=== PATIENT | male | born 1980 | race Caucasian/White ===

== ENCOUNTER 2021-10-21 22:40 | Emergency (ER) | payer MEDICAID, SELFPAY ==
[2021-10-21 22:41] VITALS: BP 152/89; PULSE 92; RESP 18; TEMP 37.2; O2SAT 97; BMI 40.2
--- NOTE | 2021-10-21 23:29 | RAD_ITS ---
STUDY: X-RAY - RIGHT TIBIA AND FIBULA REASON FOR EXAM: Male, 40 years old. injury TECHNIQUE: 2 view(s) of the tibia and fibula were obtained. COMPARISON: None. FINDINGS: Normal visualized tibia. Normal visualized fibula. The soft tissue structures are unremarkable. RAD/Tibia & Fibula 2 Views IMPRESSION: Normal x-ray examination of the tibia and fibula. Electronically Signed: Lesley Garrett MD at 0:28 EDT ,
--- NOTE | 2021-10-21 23:29 | RAD_ITS ---
STUDY: X-RAY - RIGHT ANKLE REASON FOR EXAM: Male, 40 years old. injury TECHNIQUE: 3 view(s) of the ankle. COMPARISON: None. FINDINGS: Arthrodesis of the tibiotalar joint and subtalar joints. There is solid bony bridging. There is no evidence of fracture. The soft tissue structures are unremarkable. RAD/Ankle min 3 Views IMPRESSION: There is no acute bone injury of the ankle. Electronically Signed: Lesley Garrett MD at 0:25 EDT ,
[2021-10-21] MEDS: Ondansetron ODT 4 MG Tablet PO (23:53)
[2021-10-21] MEDS: morphine 10 MG/ML Syringe 8 MG IM (23:54)
[2021-10-22 00:53] VITALS: PULSE 77; RESP 15; O2SAT 98
--- NOTE | 2021-10-22 00:53 | EX.ED.DYSGE1 ---
HPI History of Present Illness Chief Complaint: Fall Narrative Narrative: Patient is a 40-year-old male who recently had surgery at the [facility] for a ankle fusion. He states he is using a wheeled scooter to get around but does use crutches to move in the house. He states just prior to arrival he was trying to take 1 step up into the living room when he lost his balance and fell. He states he injured the right ankle which is what he had surgery on. He reports feeling a pop. He is concerned that he may have disrupted his surgery and therefore comes in for evaluation. He states that there was no loss of consciousness and he denies any blood thinner use [facility] Medical History GERD (gastroesophageal reflux disease) HTN (hypertension) Home Medications aspirin 325 mg PO DAILY 10/21/21 [History Last Taken Unknown] cholecalciferol (vitamin D3) [Vitamin D3] 10 mcg PO BID 10/21/21 [History Last Taken Unknown] cyclobenzaprine [Flexeril] 5 mg PO TID PRN 10/21/21 [History Last Taken Unknown] diphenhydramine HCl [Benadryl] 50 mg PO BID 10/21/21 [History Last Taken Unknown] docusate sodium [Colace] 100 mg PO BID 10/21/21 [History Last Taken Unknown] losartan 25 mg PO DAILY 10/21/21 [History Last Taken Unknown] omeprazole 20 mg PO DAILY 10/21/21 [History Last Taken Unknown] oxycodone-acetaminophen [Percocet] 1 tab PO Q6H PRN 10/21/21 [History Last Taken Unknown] polyethylene glycol 3350 [Miralax] 17 g PO DAILY 10/21/21 [History Last Taken Unknown] sennosides [Senna-Ex] 15 mg PO BID 10/21/21 [History Last Taken Unknown] sulfamethoxazole-trimethoprim [Bactrim DS] 1 tab PO BID 10/21/21 [History Last Taken Unknown] Allergy/AdvReac Type Severity Reaction Status Date / Time No Known Allergies Allergy Verified 10/21/21 22:43 Social History Smoking Status: Never smoker ROS ROS ED Constitutional Constitutional ED: Denies chills or fever(s) Eyes Eyes: Denies change in vision Cardiovascular Cardiovascular: Denies chest pain Respiratory/Chest Respiratory/Chest: Denies cough or dyspnea Gastrointestinal Gastrointestinal: Denies abdominal pain, diarrhea, nausea or vomiting Genitourinary Genitourinary ED: Denies dysuria Musculoskeletal Musculoskeletal: Reports other Details: Positive right foot/ankle pain ; Denies myalgias Integumentary Denies rash Neurologic Neurologic: Denies headache(s) or paresthesias Hematologic/Lymphatic Hematologic/Lymphatic: Denies easy bleeding or easy bruising EXAM Physical Exam Const Vital Signs: 10/21/21 22:41 Temperature 99 F Temperature Source Oral Pulse Rate 92 Respiratory Rate 18 Blood Pressure 152/89 H Blood Pressure Mean 110 Pulse Ox 97 Oxygen Delivery Method Room Air Positive well nourished and well developed General Appearance ED: well developed Eyes PERRL and EOMs intact bilaterally Neck supple Resp normal respiratory effort and clear to auscultation bilaterally Cardio regular rate and regular rhythm Extremity Extremity Narrative: Patient has postsurgical changes to his right lower leg. The wounds are clean dry and intact without any signs of infection or dehiscence. There is soft tissue swelling which is consistent with his recent surgery as well. There is no obvious bony deformity. Neuro oriented x3 and CN's II-XII intact bilaterally Sensorium / Orientation: alert Psych mental status grossly normal Skin Skin Narrative: Patient has soft tissue changes to the right lower leg consistent with recent surgery but no secondary changes to suggest infection MDM MDM MDM Narrative Medical decision making narrative: Patient presented to the ER with report of a mechanical fall. He does not take blood thinners and did not have loss of consciousness and therefore I felt no need for blood work or head CT. With his recent surgery and report of feeling a pop after the fall there is concern he may have damaged his hardware so x-rays were ordered. X-rays revealed no acute fracture dislocation or hardware malalignment. Therefore patient is safe for discharge and can follow-up with his surgeon for repeat evaluation. Radiography Diagnostic Testing: Clinical Impression(s) from Imaging Studies Ankle X-Ray 10/21/21 23:29 IMPRESSION: There is no acute bone injury of the ankle. Electronically Signed: Lesley Garrett MD at 0:25 EDT Reading Location ID and State: [facility] / [place] Tel , Service support , Tibia/Fibula X-Ray 10/21/21 23:29 IMPRESSION: Normal x-ray examination of the tibia and fibula. Electronically Signed: Lesley Garrett MD at 0:28 EDT , X-rays of the right ankle and right tibia/fibula as interpreted by the emergency medicine physician reveal the hardware to be intact and in place without acute fracture or dislocation Discharge Plan Triage Chief Complaint: Fall ED Provider: Wilmer Jack Dx/Rx/DC Orders Clinical Impression: Accidental fall, Post-operative pain Instructions: Pain Management After Surgery, ED Post Op Wound Check, General Prescriptions: No Action diphenhydramine HCl [Benadryl] 50 mg Capsule 50 mg PO BID RF: 0 polyethylene glycol 3350 [Miralax] 17 gram Powder In Packet 17 g PO DAILY RF: 0 aspirin 325 mg Tablet 325 mg PO DAILY RF: 0 Colace 50 mg Capsule 100 mg PO BID RF: 0 sulfamethoxazole-trimethoprim [Bactrim DS] 800-160 mg Tablet 1 tab PO BID RF: 0 oxycodone-acetaminophen [Percocet] 5-325 mg Tablet 1 tab PO Q6H PRN (Reason: Pain) RF: 0 Senna-Ex 15 mg Tablet 15 mg PO BID RF: 0 losartan 25 mg Tablet 25 mg PO DAILY RF: 0 omeprazole 20 mg Capsule,Delayed Release(Dr/Ec) 20 mg PO DAILY RF: 0 cholecalciferol (vitamin D3) [Vitamin D3] 10 mcg (400 unit) Capsule 10 mcg PO BID RF: 0 cyclobenzaprine [Flexeril] 5 mg Tablet 5 mg PO TID PRN (Reason: Pain) RF: 0 Primary Care Provider: Care Physician,No Primary Referrals: Care Physician,No Primary [Primary Care Provider] - Activity Restrictions/Additional Instructions: Please follow-up with your surgeon for repeat evaluation and return to the ER should you have any further concerns Disposition Disposition: Home, Self Care
== END 2021-10-22 01:41 | disposition home or self-care (01) ==
PROVIDERS: Emergency Provider Emergency Medicine; Visit Provider Emergency Medicine
DX: Z04.3 Encounter for examination and observation following other accident (principal); M25.571 Pain in right ankle and joints of right foot; G89.18 Other acute postprocedural pain; I10 Essential (primary) hypertension; K21.9 Gastro-esophageal reflux disease without esophagitis; Z79.82 Long term (current) use of aspirin; Z79.899 Other long term (current) drug therapy
CPT/HCPCS: 73590; 73610; 96372; 99285

== ENCOUNTER 2021-10-26 09:24 | Emergency (ER) | payer MEDICAID, SELFPAY ==
[2021-10-26 09:26] VITALS: BP 151/92; PULSE 107; RESP 14; TEMP 37.5; O2SAT 98; BMI 39.2
--- NOTE | 2021-10-26 09:33 | NURSING ---
NO OLD EKGS
--- NOTE | 2021-10-26 09:34 | EKG12_ITS ---
Test Reason : CP Blood Pressure : / mmHG Vent. Rate : 104 BPM Atrial Rate : 104 BPM P-R Int : 142 ms QRS Dur : 094 ms QT Int : 334 ms P-R-T Axes : 045 021 029 degrees QTc Int : 439 ms Sinus tachycardia Otherwise normal ECG Confirmed by RENU STUBBS, AGUSTIN ([id number]), video news editor NANCY BRAVO ([id number]) on 10/27/2021 1:32:11 PM Referred By: ERNST Confirmed By:AGUSTIN SEARS MD
--- NOTE | 2021-10-26 09:36 | ED.VIS.CHEST ---
HPI History of Present Illness Chief Complaint: Chest Pain Informant: patient Narrative Narrative: Patient presents with episodes of pain and racing heartbeat for the last 2 or 3 days. He states he thinks this might be anxiety or panic attacks. He has home postoperatively from a right ankle fusion 10 days ago. He states he is scared he might fall because he fell twice. He is scared that he might not be able to care for himself or something could happen that would prevent him from getting help. He states he gets these feelings then he gets pain and a racing heartbeat. He also feels that he needs oxygen and he would feel better at home if he had oxygen. He is also concerned that there is an infection in the wound. He has seen his surgeon up at [facility] since the surgery and since he has 2 falls at home. Evidently the wound and surgery are going well and healing well. He is on antibiotics because he had a reaction to petroleum gauze. But he has had no fevers or chills. He has slight drainage from the wound but it is lessening. His surgeon thinks it is healing very well. Nothing specifically makes the symptoms better. The concerns as above tend to make them worse. [facility] Medical History GERD (gastroesophageal reflux disease) HTN (hypertension) Home Medications aspirin 325 mg PO DAILY 10/21/21 [History Last Taken Unknown] cholecalciferol (vitamin D3) [Vitamin D3] 10 mcg PO BID 10/21/21 [History Last Taken Unknown] cyclobenzaprine [Flexeril] 5 mg PO TID PRN 10/21/21 [History Last Taken Unknown] diphenhydramine HCl [Benadryl] 50 mg PO BID 10/21/21 [History Last Taken Unknown] docusate sodium [Colace] 100 mg PO BID 10/21/21 [History Last Taken Unknown] losartan 25 mg PO DAILY 10/21/21 [History Last Taken Unknown] omeprazole 20 mg PO DAILY 10/21/21 [History Last Taken Unknown] oxycodone-acetaminophen [Percocet] 1 tab PO Q6H PRN 10/21/21 [History Last Taken Unknown] polyethylene glycol 3350 [Miralax] 17 g PO DAILY 10/21/21 [History Last Taken Unknown] sennosides [Senna-Ex] 15 mg PO BID 10/21/21 [History Last Taken Unknown] sulfamethoxazole-trimethoprim [Bactrim DS] 1 tab PO BID 10/21/21 [History Last Taken Unknown] hydroxyzine pamoate 50 mg PO TID PRN PRN #30 cap 10/26/21 [Rx Last Taken Unknown] Allergy/AdvReac Type Severity Reaction Status Date / Time petrolatum,white Allergy Hives Verified 10/26/21 09:25 [From Vaseline] Social History Smoking Status: Never smoker ROS ROS ED Constitutional Constitutional ED: Denies chills or fever(s) Eyes Eyes: Denies blurry vision ENT ENT ED: Denies rhinorrhea or sore throat Cardiovascular Cardiovascular: Reports as per HPI and chest pain Respiratory/Chest Respiratory/Chest: Reports dyspnea Gastrointestinal Gastrointestinal: Denies abdominal pain, nausea or vomiting Musculoskeletal Musculoskeletal: Reports other Details: Right ankle pain but this is controlled. ; Denies arthralgias or myalgias Integumentary Reports other Details: Had a local reaction to the petrolatum gauze at his right ankle but that is improving. ; Denies rash Neurologic Neurologic: Denies headache(s) Psychiatric Psychiatric: Reports anxiety Endocrine Endocrinology: Denies polydipsia or polyuria Hematologic/Lymphatic Hematologic/Lymphatic: Denies easy bleeding or easy bruising Allergic/Immunologic Allergic/Immunologic ED: Denies urticaria EXAM Physical Exam Const Vital Signs: 10/26/21 09:26 10/26/21 09:32 10/26/21 09:39 Temperature 99.5 F H Temperature Source Temporal Pulse Rate 107 H Respiratory Rate 14 Respiratory Effort Short of Breath Blood Pressure 151/92 H Blood Pressure Mean 111 Pulse Ox 98 97 Oxygen Delivery Method Room Air Room Air 10/26/21 11:04 Temperature Temperature Source Pulse Rate 94 Respiratory Rate 20 H Respiratory Effort Blood Pressure 140/77 H Blood Pressure Mean 98 Pulse Ox 94 Oxygen Delivery Method Room Air Positive well nourished and well developed General Appearance ED: well developed and NAD HEENT Reports moist mucous membranes Eyes Negative for PERRL or EOMs intact bilaterally Neck No supple Chest Wall inspection of chest normal Chest Narrative: He does have some chest wall tenderness on both sides but mostly on the lower right anterior. No rash. Resp normal respiratory effort and clear to auscultation bilaterally Resp Narrative: No pain when he takes a deep breath for me. Effort and Inspection: Negative for respiratory distress Auscultation: wheezes; Negative for rales or rhonchi Cardio regular rhythm Rate: other Other Details: Rate is a little tachycardic about 105. Rare PVC. GI normal to inspection, nondistended, normoactive bowel sounds, soft to palpation, non-tender and non-distended Back/Spine no CVA tenderness Extremity Extremity Narrative: Dressings applied by his surgeon are on right lower extremity. Toes have normal color and sensation and motion. Skin and leg above the dressings are normal. Neuro Sensorium / Orientation: awake and alert Psych mental status grossly normal Mood & Affect: anxious Skin no rashes or lesions noted MDM MDM MDM Narrative Medical decision making narrative: Blood work shows normal white count. Hemoglobin is just minimally low. Platelets are normal. Electrolytes show no marked abnormalities. Troponin is negative despite symptoms off and on for couple days. CT shows no PE but there is some mild atelectasis its not uncommon after surgery. I think the patient can go home. He thought his symptoms were due to anxiety. I think this likely is a case. When not seeing signs of infectious cardiac pulmonary embolus or other complications. I will get patient home on some Vistaril as an option. We discussed reasons that would still prompt repeat evaluation return. Lab Data Attestation: I reviewed the patient's lab results. Labs: Laboratory Results - last 24 hr 10/26/21 10/26/21 09:40 09:40 WBC 6.8 RBC 4.40 L Hgb 12.7 L Hct 37.2 L MCV 84.5 MCH 28.9 MCHC 34.1 RDW Std Deviation 39.2 RDW Coeff of Izzy 12.8 Plt Count 196 MPV 13.0 H Immature Gran % (Auto) 0.300 Neut % (Auto) 67.8 Lymph % (Auto) 21.3 Villalba % (Auto) 6.8 Eos % (Auto) 3.1 Baso % (Auto) 0.7 Absolute Neuts (auto) 4.6 Absolute Lymphs (auto) 1.44 Nucleated RBC % 0 Sodium 134 L Potassium 3.8 Chloride 103 Carbon Dioxide 21.0 Anion Gap 10 BUN 14 Creatinine 1.29 Estim Creat Clear Calc 90.98 Est GFR (MDRD) Af Amer 79 Est GFR (MDRD) Non-Af 65 BUN/Creatinine Ratio 10.9 Glucose 131 H Calcium 9.1 Troponin I High Sens < 3 L Radiography Diagnostic Testing: Clinical Impression(s) from Imaging Studies Chest CTA 10/26/21 10:00 IMPRESSION: Findings suggestive of mild degree of bibasilar atelectasis. Electronically Signed: Omkar Tadeo MD at 10:41 EDT , Treatment and Re-Evaluation Narrative: EKG done for chest pain palpitations and read by me shows a sinus rhythm with slightly tachycardic rate of 104. No ventricular ectopy on this EKG. No acute ST elevation or depression and he was having symptoms with this EKG. IL interval, QRS duration and QTc normal. Discharge Plan Triage Chief Complaint: Chest Pain ED Provider: Gilmar Jovel Dx/Rx/DC Orders Clinical Impression: Heart palpitations, Anxiety Instructions: ED Anxiety Reaction, ED Palpitations Prescriptions: New hydroxyzine pamoate [hydroxyzine pamoate] 25 MG capsule 50 mg PO TID PRN PRN (Reason: Anxiety) Qty: 30 RF: 0 No Action diphenhydramine HCl [Benadryl] 50 mg Capsule 50 mg PO BID RF: 0 polyethylene glycol 3350 [Miralax] 17 gram Powder In Packet 17 g PO DAILY RF: 0 aspirin 325 mg Tablet 325 mg PO DAILY RF: 0 Colace 50 mg Capsule 100 mg PO BID RF: 0 sulfamethoxazole-trimethoprim [Bactrim DS] 800-160 mg Tablet 1 tab PO BID RF: 0 oxycodone-acetaminophen [Percocet] 5-325 mg Tablet 1 tab PO Q6H PRN (Reason: Pain) RF: 0 Senna-Ex 15 mg Tablet 15 mg PO BID RF: 0 losartan 25 mg Tablet 25 mg PO DAILY RF: 0 omeprazole 20 mg Capsule,Delayed Release(Dr/Ec) 20 mg PO DAILY RF: 0 cholecalciferol (vitamin D3) [Vitamin D3] 10 mcg (400 unit) Capsule 10 mcg PO BID RF: 0 cyclobenzaprine [Flexeril] 5 mg Tablet 5 mg PO TID PRN (Reason: Pain) RF: 0 Referrals: XANDER BARTLETT [Other] - 3-5 Days Disposition Disposition: Home, Self Care
[2021-10-26 09:39] VITALS: O2SAT 97
--- NOTE | 2021-10-26 10:00 | CT_ITS ---
STUDY: CTA CHEST REASON FOR EXAM: Male, 40 years old. Chest pain post op RADIATION DOSAGE (If Supplied By Facility): CTDIvol = ( 16.22 ) mGy, DLP = ( 598.43 ) mGycm TECHNIQUE: The examination was performed with the intravenous administration of IV 100mL Isovue-370. Post-processing of the angiographic images was performed, with multiplanar reformation and 3D reconstruction. Individualized dose optimization techniques were used for this CT. COMPARISON: None. FINDINGS: Normal enhancement of the main pulmonary artery and right and left pulmonary arteries. Normal enhancement of the bilateral peripheral pulmonary arteries. There is no demonstrated pulmonary embolism. Normal thoracic aorta and visualized great vessels. There is no demonstrated aortic dissection. Normal heart and pericardium. Normal mediastinum. Normal hilar regions. Normal visualized trachea and bronchi. The lungs are well expanded. Mild degree of increased markings at the lung bases suggest mild basilar atelectasis. Normal pleura. Normal chest wall structures. There are degenerative changes of thoracic spine. Small hiatal hernia. CT/CTA Chest W/WO Contrast IMPRESSION: Findings suggestive of mild degree of bibasilar atelectasis. Electronically Signed: Omkar Tadeo MD at 10:41 EDT ,
[2021-10-26 10:02] LABS: Absolute Lymphocyte Count 1.44 X10^3/uL (0.83-4.51); Absolute Neutrophil Count 4.6 X10^3/uL (2.0-7.7); Basophil# 0.05 X10^3/uL; Basophil% 0.7 % (0-1); Eosinophil# 0.21 X10^3/uL; Eosinophils% 3.1 % (0-5); Hematocrit 37.2 % (40-54); Hemoglobin 12.7 g/dL (13.0-16.5); Lymphocyte # 1.44 X10^3/ul (0.83-4.51); Lymphocyte % 21.3 % (19-41); Mean Corp Hgb Conc 34.1 g/dL (32-36); Mean Corpuscular Hgb 28.9 pg (27.0-32.0); Mean Corpuscular Volume 84.5 fL (80-94); Monocyte# 0.46 X10^3/uL; Monocyte% 6.8 % (0-10); NRBC Flagged by Analyzer 0 % (0-5); Neutrophil # 4.58 X10^3/uL (2.7-7.7); Neutrophil % 67.8 % (47-70); Platelet Count 196 K/mm3 (150-450); RBC Distribution Width CV 12.8 % (11.6-14.6); RBC Distribution Width SD 39.2 fl (35.1-43.9); White Blood Count 6.8 K/mm3 (4.4-11.0)
[2021-10-26 10:22] LABS: Anion Gap 10 (5-15); BUN 14 mg/dL (7-18); BUN/Creat Ratio 10.9 RATIO (10-20); Calcium,Total 9.1 mg/dL (8.5-10.1); Chloride 103 mmol/L (98-107); Creatinine, Serum 1.29 mg/dL (0.70-1.30); EST Glomerular Filtration Rate 65 mL/min (>60); Est Glom Filt Rate - Afr Amer 79 mL/min (>60); Estimated Creatinine Clearance 90.98 ml/min; Glucose 131 mg/dL (74-106); Potassium 3.8 mmol/L (3.5-5.1); Sodium Level 134 mmol/L (136-145); Troponin-I HS < 3 pg/mL (3.0-78.0)
[2021-10-26 11:04] VITALS: BP 140/77; PULSE 94; RESP 20; O2SAT 94
== END 2021-10-26 12:10 | disposition home or self-care (01) ==
PROVIDERS: Emergency Provider Emergency Medicine; Visit Provider Emergency Medicine
DX: F41.9 Anxiety disorder, unspecified (principal); R00.2 Palpitations; I10 Essential (primary) hypertension; K21.9 Gastro-esophageal reflux disease without esophagitis; Z79.82 Long term (current) use of aspirin; Z79.899 Other long term (current) drug therapy
CPT/HCPCS: 71275; 80048; 84484; 85025; 93005; 99285; Q9967; A4216

== ENCOUNTER 2022-05-20 10:00 | Outpatient (RCR) | payer MEDICAID, SELFPAY ==
--- NOTE | 2022-02-03 11:23 | HP.PTDCSUM_ITS ---
It has been my pleasure to treat ANTHONY BOBBY referred by AMERICO STEVENSON, with the diagnosis of Ankle varus R, fusion R ankle in September for a total of 1 visit(s). Discharge Date: Please see the following information for a summary of their discharge status. 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 Goal 4:: Patient feel 60% better overall activity Goal 5:: 45 LEFS score Plan: 2x/week for 4-6 weeks for. R ankle improved WB and stance. STM to R foot and ankle and ROM to unfused bones PROM. Edema control. education on importanc e of muscle contractions despite lack of movement and strength t o remaining R ankle. Emphasis should be on gait and balance in therapy out of boot to tolerance. Pt is WBAT in boot at home and out of boot in therapy clinic. If there are questions or concerns regarding this patient's physical therapy, please feel free to call me at [phone]. Thank you for the referral of this patient. Sincerely, Ilan Salmeron, DPT, OCS, CSCS Balance/Gait/Functional tests - Balance/Special Test Scores Lower Extremity Functional Score: 17
--- NOTE | 2022-02-03 11:24 | HP.PTEVAL_ITS ---
Patient's Visit Information ANTHONY BOBBY is a 41 year old M referred to Physical Therapy by AMERICO STEVENSON with a diagnosis of Ankle varus R, fusion R ankle in September. Date of Evaluation: 02/03/22 Physical Therapist: Ilan Salmeron, DPT, OCS, CSCS - Visit Plan Frequency: 2x /Week Duration: 4-6 Weeks Plan: 2x/week for 4-6 weeks for. R ankle improved WB and stance. STM to R foot and ankle and ROM to unfused bones PROM. Edema control. education on importance of muscle contractions despite lack of movement and strength t o remaining R ankle. Emphasis should be on gait and balance in therapy out of boot to tolerance. Pt is WBAT in boot at home and out of boot in therapy clinic. - Subjective R ankle fused in September. 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 Has been NWB since surgery x 2 months with knee scooter and crutches. Had cast for first couple months. Now has boot for the last one month and WB for a couple weeks. Pain level varies. can be at 2/10 and up to 6/10 and worse with movement of toes. Minimal today 2/10 Has blue pad in it which makes it bearable. Sleep is OK as far as foot goes. Basic ADLS are getting done himself. Lives with . Has one flight steps with rail and doing them with L leg. 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 Hurts more after standing on it. Hobbies: TV comfortable. March 11 is next appointment and wants him in boot until then. Has had foot reconstruction in past but did not work and now ankle fusion and no motion at ankle. - Pain R top of foot Pain Intensity (Out of 10): 2 Pain Intensity Range: 2, 6 - Objective Walks back to PT in boot FWB R. Short L step length due to ROM limitations in boot. Unable to walk without boot. Stance with most WB L without boot(10-20% through R), some pain in heel. Trasnfers with and without boot chair and bed I. R ankle ROM is very limited without any DF or PF although he can get some movement from forefoot. inv and ev max limited again with only some forefoot movement. AROM L ankle WFL. R ankle is at 10 degrees into PF and gets no ankle motion other than this similarly in 5 degrees eversion and no other ankle motion although the forefoot and foot bones give him the appearance of some motion. Incision are dry and heled well with scar tissue anteriorly but end feels are hard as if no motion will be forthcoming. This is consistent with the patients expectations based on doctor's info to him. is able to contract all muscle around R ankle, Moves toes and 4/5 strength big toe flex /ext on R. Metatarsals in R foot passively moving well. Swollen moderately in R foot and ankle. 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 Goal Time Frame: 4-6 Weeks Goal 4:: Patient feel 60% better overall activity Goal Time Frame: 4-6 Weeks Goal 5:: 45 LEFS score Goal Time Frame: 4-6 Weeks - Rehabilitation Potential Physical Therapy Diagnosis: R ankle limited motion from surgery and limiting funciton Rehabilitation Potential: Fair - Anticipated Interventions Patient/Client Instruction: Educate patient on: Condition, Plan of Care For the Purpose of:: To decrease pain, To increase ROM, To improve nutrient delivery to tissue, To improve muscle performance and motor function, To increase tolerance to activity/condition/position, To improve gait and locomotor functions Therapeutic Exercise to Include: Strength training, Flexibilty training, Gait and locomotor training, Passive ROM, Active ROM For the Purpose of:: To decrease pain, To increase ROM, To improve muscle performance and motor function, To increase tolerance to activity/condition/position, To improve ability of physical actions for home/community/work/leisure, To improve gait and locomotor functions Manual Therapy Techniques to Include: Manual lymph drainage, Soft tissue mobilization For the Purpose of:: To decrease pain, To increase ROM, To improve nutrient delivery to tissue Cryotherapy (ice pack, ice massage): Yes Vasopneumatic device: Yes For the Purpose of:: To decrease pain, To decrease swelling/inflammation, To increase ROM Thank you for the opportunity to evaluate your patient. For Medicare and Medicare HMO plans, please review the plan of care and approve it. It will need to be FAXED BACK to us at [phone] for Medicare purposes. For Medicare only, by signing this I certify the plan of care. Please let me know if there are questions or concerns regarding this plan of care. Physician Signature: Date:
--- NOTE | 2022-03-17 12:28 | HP.PTREVAL ---
AMERICO STEVENSON, It has been my pleasure to treat ANTHONY BOBBY over the last 9 visits for Ankle varus R, fusion R ankle in September. Please see the progress note below for an update on the physical therapy plan of care! Subjective: Doc said everything looks good. Wants him to be in shoes completely by next session May next year. Needs to build strength. Pain is intermittent and worse with walking and up to 4/10. Not worse since got rid of boot yesterday which doctor said he could do. Doctor doesn't think he will get more motion back. Objective/Function: 5 degree inv to 12 eversion, 0 DF to 12 PF. strength is 4/5 in available ROM except inv which is 3+. Walks with shoes today into PT and out, short L step length, hesitant and avoids pushoff expectedly on R. Very small heel raise possible due to ROm on R. steps reciprocal with one rail, lands on heel on R. Overall progressing nicely for first full day out of boot. Goals still appropriate for next 4-6 weeks, fair prognosis. Plan Plan: Continue 2x/week for 4 weeks for... 1. work on R inv Strength and proprioception to R ankle. 2. Work on gait and stairs with R. 3. Work toward overall body functional strength that patient can do at home and progress to I. Fair prognosis continuing toward goals. 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 Goal Time Frame: 4-6 Weeks Goal Progress: in boot Goal 4:: Patient feel 60% better overall activity Goal Time Frame: 4-6 Weeks Goal Progress: 50% Goal 5:: 45 LEFS score Goal Time Frame: 4-6 Weeks Goal 6:: I HEP for overall body strength pt can do at home including proprioception Goal Time Frame: 4-6 Weeks Goal Progress: NEW GOAL Anticipated Interventions Patient/Client Instruction: Educate patient on: Condition, Plan of Care For the Purpose of:: To decrease pain, To increase ROM, To improve nutrient delivery to tissue, To improve muscle performance and motor function, To increase tolerance to activity/condition/position, To improve gait and locomotor functions Therapeutic Exercise to Include: Strength training, Flexibilty training, Gait and locomotor training, Passive ROM, Active ROM For the Purpose of:: To decrease pain, To increase ROM, To improve muscle performance and motor function, To increase tolerance to activity/condition/position, To improve ability of physical actions for home/community/work/leisure, To improve gait and locomotor functions Manual Therapy Techniques to Include: Manual lymph drainage, Soft tissue mobilization For the Purpose of:: To decrease pain, To increase ROM, To improve nutrient delivery to tissue Cryotherapy (ice pack, ice massage): Yes Vasopneumatic device: Yes For the Purpose of:: To decrease pain, To decrease swelling/inflammation, To increase ROM Please do not hesitate to contact me at [phone] by phone or if you have questions or concerns regarding this new plan of care! Sincerely, Ilan Salmeron, DPT, OCS, CSCS
--- NOTE | 2022-04-22 11:30 | HP.PTREVAL ---
AMERICO STEVENSON, It has been my pleasure to treat ANTHONY BOBBY over the last 17 visits for Ankle varus R, fusion R ankle in September. Please see the progress note below for an update on the physical therapy plan of care! Subjective: Pain in R heel but doctor knows and is getting him orthotics. A lot better than when he started. Getting around better. Tasks are easier. Heel pain is the hard part right now. (due to multiple surgeries in short time). Pain in heel up to 2/10 and comfot=rtable sitting. Up to 5/10 if he overdoes it. Sleep is OK. Activities at home are getting more normal. 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 Gone when he rests. Doing band at home 20 reps GTB daily. Wants to have a little more therapy to walk a mile or more. Pain in the heel is holding him back. Objective/Function: Walking symmetrical step lengths safe and I without AD or boot. Unable to push off much with R LE(or L) due to limited motion, Trasnfers safe adn I. ROM minimal in inv/ev on R and not improving from last recheck, has about 0 Df to 15 PF in R ankle. Holds toes off the ground on R when standing and walking but can put them down adn use forefoot a little when cued. Plan Plan: NEW POC. 2x/week x 3 weeks... 1. Gait and forward weight shift training on R foot, please utilize balance machine for visual feedback in forward weight shifts. 2. 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 New goal set and fair prognosis. 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 Goal Time Frame: 4-6 Weeks Goal Progress: still hurts, approp Goal 4:: Patient feel 60% better overall activity Goal Time Frame: 4-6 Weeks Goal Progress: 50%, stagnant Goal 5:: 45 LEFS score Goal Time Frame: 4-6 Weeks Goal Progress: Progressing, approp Goal 6:: I HEP for overall body strength pt can do at home including proprioception Goal Time Frame: 4-6 Weeks Goal Progress: FOCUS on this Anticipated Interventions Patient/Client Instruction: Educate patient on: Condition, Plan of Care For the Purpose of:: To decrease pain, To increase ROM, To improve nutrient delivery to tissue, To improve muscle performance and motor function, To increase tolerance to activity/condition/position, To improve gait and locomotor functions Therapeutic Exercise to Include: Strength training, Flexibilty training, Gait and locomotor training, Passive ROM, Active ROM For the Purpose of:: To decrease pain, To increase ROM, To improve muscle performance and motor function, To increase tolerance to activity/condition/position, To improve ability of physical actions for home/community/work/leisure, To improve gait and locomotor functions Manual Therapy Techniques to Include: Manual lymph drainage, Soft tissue mobilization For the Purpose of:: To decrease pain, To increase ROM, To improve nutrient delivery to tissue Cryotherapy (ice pack, ice massage): Yes Vasopneumatic device: Yes For the Purpose of:: To decrease pain, To decrease swelling/inflammation, To increase ROM Please do not hesitate to contact me at [phone] by phone or if you have questions or concerns regarding this new plan of care! Sincerely, Ilan Salmeron, DPT, OCS, CSCS
--- NOTE | 2022-05-20 11:02 | HP.PTDCSUM ---
It has been my pleasure to treat ANTHONY BOBBY referred by AMERICO STEVENSON, with the diagnosis of Ankle varus R, fusion R ankle in September for a total of 22 visit(s). Discharge Date: 05/20/22 Please see the following information for a summary of their discharge status. Subjective: Pt. states that he is about 90% better since starting physical therapy. He reports overall everything is better but he has difficulty with walking longer than 1/2 mild or going up/down stairs. He has a follow up with his doctor in May. R top of foot Pain Intensity (Out of 10): 4 Left Distal Bhagat Pain Intensity (Out of 10): Unrated R heel pain Pain Intensity (Out of 10): 4 L ankle Pain Intensity (Out of 10): Unrated % Improvement: 90 Objective/Function: Anthony has come to 22 sessions of physical therapy focusing on improving right ankle ROM, strength, and balance. Reviewed his goals for therapy and he has met and is progressing towards meeting other goals for therapy. Pt. stated that he felt like he was good to continue with his exercises at home and also plans to go to [employer]. He will have a follow up with his doctor in May. Pt. has been discharged from physical therapy at this time. 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 Goal Progress: still hurts, approp Goal 4:: Patient feel 60% better overall activity Goal Progress: Goal met; 90% better Goal 5:: 45 LEFS score Goal Progress: Progressing, approp; 40 Goal 6:: I HEP for overall body strength pt can do at home including proprioception Goal Progress: Goal Met Plan: Pt. has been discharged from physical therapy at this time and will continue with his exercises at home and also plans to go to [employer] a few days a week. Discharge Comments: Pt. has been discharged from physical therapy and will continue with his exercises at home and plans to go to [employer]. If there are questions or concerns regarding this patient's physical therapy, please feel free to call me at [phone]. Thank you for the referral of this patient. Sincerely, Joel Garcia Balance/Gait/Functional tests - Balance/Special Test Scores Lower Extremity Functional Score: 40
== END 2022-05-20 19:00 | disposition home or self-care (01) ==
LOC: PT 10:00
DX: M21.541 Acquired clubfoot, right foot (principal)
CPT/HCPCS: 97110; 97140; 97162; 97164; 97530

== ENCOUNTER → 2023-04-28 | Outpatient (CLI) | payer OTHER, SELFPAY ==
--- NOTE | 2023-04-28 09:21 | RAD_ITS ---
STUDY: X-RAY - RIGHT KNEE REASON FOR EXAM: Male, 42 years old. Contusion TECHNIQUE: 4 view(s) of the knee. COMPARISON: None. FINDINGS: Normal visualized distal femur. Normal visualized proximal tibia and fibula. Normal proximal tibiofibular articulation. Normal medial femorotibial compartment. Normal lateral femorotibial compartment. Normal patellofemoral articulation. The soft tissue structures are unremarkable. RAD/Knee 4 or More Views IMPRESSION: Normal x-ray examination of the knee. Electronically Signed: Omkar Tadeo MD at 9:42 EST ,
--- NOTE | 2023-04-28 09:21 | RAD_ITS ---
STUDY: X-RAY - RIGHT TIBIA AND FIBULA REASON FOR EXAM: Male, 42 years old. Contusion following injury. TECHNIQUE: 4 view(s) of the tibia and fibula were obtained. COMPARISON: Comparison is made with prior study dated October 21, 2021. FINDINGS: The patient is status post intramedullary scotty fixation of the mid and distal tibia as well as prior fusion at the tibiocalcaneal joint. Normal visualized fibula. The soft tissue structures are unremarkable. RAD/Tibia & Fibula 2 Views IMPRESSION: No acute abnormality is seen. Electronically Signed: Omkar Tadeo MD at 9:43 EST ,
== END | disposition home or self-care (01) ==
PROVIDERS: Referring Provider Physician Assistant Surgical; Visit Provider Physician Assistant Surgical
DX: S80.11XA Contusion of right lower leg, initial encounter (principal); X58.XXXA Exposure to other specified factors, initial encounter
CPT/HCPCS: 73564; 73590